=== PATIENT | male | born 1950 | race Caucasian/White ===

== ENCOUNTER 2024-11-23 10:00 | Outpatient (RCR) | payer MEDICARE, BC, SELFPAY | END 2025-01-04 13:08 | disposition home or self-care (01) | PROVIDERS: PCP Family Medicine; Visit Provider Orthopaedic Surgery | DX: Z48.89 Encounter for other specified surgical aftercare (principal); S83.252D Bucket-handle tear of lateral meniscus, current injury, left knee, subsequent encounter; Z51.89 Encounter for other specified aftercare | CPT/HCPCS: 97110; 97140; 97161 ==

== ENCOUNTER 2024-12-28 09:13 | Outpatient (CLI) | payer MEDICARE, BC, SELFPAY ==
--- NOTE | 2024-12-28 10:46 | P.ANES_ITS ---
Anesthesia Charges Start Date/Time Anesthesia Start Date: 12/28/24 Anesthesia Start Time: 10:16 Stop Date/Time Anesthesia Stop Date: 12/28/24 Anesthesia Stop Time: 10:45 Summary Extremes of Age - Over 70 or under 1: ROLLED HAM LACER Coding CPT Codes CPT Codes: ANES LWR INTST SCR COLSC - 81552 ([id number]) P2 - PATIENT W/MILD SYST DISEASE, QK - COIL MACHINE SUPERVISOR 2-4 CNCRNT ANES PROC, QX - ROLLED HAM LACER SVC W/ MD MED DIRECTION Additional Codes: Summary - Extremes of Age - Over 70 or under 1: ROLLED HAM LACER ([id number])
--- NOTE | 2024-12-28 10:46 | W.ANESCHARGE ---
Anesthesia Charges Start Date/Time Anesthesia Start Date: 12/28/24 Anesthesia Start Time: 10:16 Stop Date/Time Anesthesia Stop Date: 12/28/24 Anesthesia Stop Time: 10:45 Summary Extremes of Age - Over 70 or under 1: MEDICAL LEADER Coding CPT Codes CPT Codes: ANES LWR INTST SCR COLSC - 60020 ([id number]) P2 - PATIENT W/MILD SYST DISEASE, QK - MANUFACTURING TECHNOLOGIST 2-4 CNCRNT ANES PROC, QX - MEDICAL LEADER SVC W/ MD MED DIRECTION Additional Codes: Summary - Extremes of Age - Over 70 or under 1: MEDICAL LEADER ([id number])
--- NOTE | 2024-12-28 11:07 | P.ANES_ITS ---
Anesthesia Charges Start Date/Time Anesthesia Start Date: 12/28/24 Anesthesia Start Time: 10:16 Stop Date/Time Anesthesia Stop Date: 12/28/24 Anesthesia Stop Time: 10:45 Summary Extremes of Age - Over 70 or under 1: MDA Coding CPT Codes CPT Codes: ANES LWR INTST SCR COLSC - 09363 ([id number]) QK - FISHER DIVING 2-4 CNCRNT ANES PROC, QX - OPTICAL INSTRUMENT ASSEMBLY SUPERVISOR SVC W/ MD MED DIRECTION, P2 - PATIENT W/MILD SYST DISEASE Additional Codes: Summary - Extremes of Age - Over 70 or under 1: MDA ([id number])
== END 2024-12-28 09:14 | disposition home or self-care (01) ==
LOC: OP CLINIC 09:16
PROVIDERS: PCP Family Medicine; Visit Provider Internal Medicine Gastroenterology
DX: Z12.11 Encounter for screening for malignant neoplasm of colon (principal); Z86.0101 Personal history of adenomatous and serrated colon polyps; K57.30 Diverticulosis of large intestine without perforation or abscess without bleeding
CPT/HCPCS: 00812; 45378; 99100; J2704